=== PATIENT | female | born 1975 | race Two or more races ===

== ENCOUNTER 2024-09-07 10:25 | Outpatient (RCR) | payer MEDICAID, SELFPAY ==
--- NOTE | 2024-09-07 10:00 | XR_ITS ---
Examination: FABIO, hepatobiliary radioisotope scan Gallbladder ejection fraction study. Date and time of exam: September 07, 2024 1043 hours INDICATIONS: Stabbing upper abdominal pain one year heartburn and acid reflux hypertension breast cancer diagnosis Technique: 5.9 mCi of 99M Hepatolite administered. Serial imaging then obtained from immediate through 60 minutes. 1.6 mcg selective catheter Kinevac administered for gallbladder ejection fraction study. Findings: Radioisotope activity within the liver is reasonably homogenous. Gallbladder, common bile duct small bowel activity noted Impression: Gallbladder activity Abnormal gallbladder ejection fraction, 10%, normal greater than 35%
== END 2024-09-12 23:59 | disposition home or self-care (01) ==
LOC: SNUC 10:25
PROVIDERS: Referring Provider Registered Nurse; Visit Provider Registered Nurse
DX: R93.2 Abnormal findings on diagnostic imaging of liver and biliary tract (principal)
CPT/HCPCS: 78227; A9537; J2805